=== PATIENT | female | born 1970 | race Hispanic/Latino ===

== ENCOUNTER 2021-03-19 09:58 | Observation (INO) | payer SELFPAY ==
--- NOTE | 2021-03-19 10:31 | Event Note ---
ED Screening Note Date of service: 03/19/21 Time: 10:29 ED Screening Note: Patient states that she was sent to the ER by her primary care doctor for low hemoglobin. Patient had lab work done Wednesday, and it was found that she had a hemoglobin of 5.2. Patient states that for the past 2 months she has been having syncopal episodes and numbness in her arms and dizziness. She states that she has passed out 4 times in the past 2 months. She states that she has been going to her primary care doctor about her symptoms but he finally just did lab work Wednesday and she was notified about abnormal labs and was informed to come to the ER. Patient denies any underlying past medical history. She denies any black stools or hematochezia. She is postmenopausal. This initial assessment/diagnostic orders/clinical plan/treatment(s) is/are subject to change based on patients health status, clinical progression and re- assessment by fellow clinical providers in the ED. Further treatment and workup at subsequent clinical providers discretion. Patient/guardian urged not to elope from the ED as their condition may be serious if not clinically assessed and managed. Initial orders include: CBC, CMP, type and screen
[2021-03-19 11:53] LABS: Basophils # (Auto) 0.1 K/mm3 (0.0-0.1); Basophils % (Auto) 1.3 % (0.0-1.8); Eosinophils # (Auto) 0.4 K/mm3 (0.0-0.4); Eosinophils % (Auto) 4.6 % (0.0-4.3); Lymphocytes # (Auto) 1.6 K/mm3 (1.2-5.4); Lymphocytes % (Auto) 20.5 % (13.4-35.0); Mean Corpuscular HGB Conc 30 % (30-34); Monocytes # (Auto) 0.6 K/mm3 (0.0-0.8); Monocytes % (Auto) 7.2 % (0.0-7.3); Platelet Count 772 K/mm3 (140-440); Red Blood Count 3.11 M/mm3 (3.65-5.03); Red Cell Distribution Width 19.3 % (13.2-15.2)
[2021-03-19 12:09] LABS: Albumin 4.2 g/dL (3.9-5); Calcium 9.5 mg/dL (8.4-10.2)
[2021-03-19 12:41] LABS: Hematocrit 17.6 % (30.3-42.9); Mean Corpuscular Volume 57 fl (79-97)
--- NOTE | 2021-03-19 13:08 | Emergency Department Report ---
ED General Adult HPI - General Chief complaint: Recheck/Abnormal Lab/Rx Stated complaint: LOW IRON SENT BY DOCTOR Time Seen by Provider: 03/19/21 12:41 Source: patient Mode of arrival: Ambulatory Limitations: No Limitations - History of Present Illness Initial comments: Patient is 50 years old female with history of hypertension. Patient presented to the ER stating that she was called by her primary care physician asked him to come to the emergency room because they found that she has a hemoglobin of 5.2. Patient stated that she saw her primary care physician 3 days ago for dizziness and generalized fatigue and he ordered blood. She denied any hemoptysis, hematemesis, melena or hematochezia. Patient also denied any hematuria or abnormal vaginal bleeding. Severity scale (0 -10): 0 - Related Data Previous Rx's Medication Instructions Recorded Last Taken Type Acetaminophen/Codeine 1 tab PO Q6H PRN #14 tab 07/17/14 Unknown Rx [Acetaminophen-Codeine #3 TAB] Clindamycin [Clindamycin CAP] 450 mg PO TID #30 capsule 07/17/14 Unknown Rx Naproxen [Naprosyn TAB] 500 mg PO BID #30 tablet 07/17/14 Unknown Rx Docusate Sodium [Colace] 100 mg PO BID PRN #60 capsule 03/19/21 Unknown Rx Ferrous Sulfate [Ferrous Sulfate 324 mg PO BID #60 tablet. 03/19/21 Unknown Rx 324 MG] Allergies Allergy/AdvReac Type Severity Reaction Status Date / Time Penicillins AdvReac Rash Verified 07/17/14 16:02 ED Review of Systems ROS: Stated complaint: LOW IRON SENT BY DOCTOR Other details as noted in HPI Comment: All other systems reviewed and negative Constitutional: denies: chills, fever Respiratory: denies: cough, shortness of breath, SOB with exertion Cardiovascular: denies: chest pain, palpitations Gastrointestinal: denies: abdominal pain, nausea, vomiting Musculoskeletal: denies: back pain Neurological: denies: headache, weakness, numbness, paresthesias, confusion ED Past Medical Hx - Past Medical History Previous Medical History?: No Additional medical history: denies - Surgical History Past Surgical History?: Yes Additional Surgical History: x 2, gallbladder removed, tonsilectomy - Social History Smoking Status: Never Smoker Substance Use Type: None - Medications Home Medications: Home Medications Medication Instructions Recorded Confirmed Last Taken Type Acetaminophen/Codeine 1 tab PO Q6H PRN #14 tab 07/17/14 Unknown Rx [Acetaminophen-Codeine #3 TAB] Clindamycin [Clindamycin CAP] 450 mg PO TID #30 capsule 07/17/14 Unknown Rx Naproxen [Naprosyn TAB] 500 mg PO BID #30 tablet 07/17/14 Unknown Rx Docusate Sodium [Colace] 100 mg PO BID PRN #60 capsule 03/19/21 Unknown Rx Ferrous Sulfate [Ferrous Sulfate 324 mg PO BID #60 tablet. 03/19/21 Unknown Rx 324 MG] ED Physical Exam - General Limitations: No Limitations General appearance: alert, in no apparent distress - Eye Eye exam: Present: other (Pale conjunctiva) - ENT ENT exam: Present: normal exam, normal orophraynx, mucous membranes moist - Neck Neck exam: Present: normal inspection, full ROM. Absent: tenderness, men ingismus - Respiratory Respiratory exam: Present: normal lung sounds bilaterally - Cardiovascular Cardiovascular Exam: Present: regular rate, normal rhythm, normal heart sounds - GI/Abdominal GI/Abdominal exam: Present: soft, normal bowel sounds. Absent: distended, tenderness, guarding, rebound, rigid, organomegaly, mass, bruit, pulsatile mass, hernia - Extremities Exam Extremities exam: Present: normal inspection, full ROM, normal capillary refill. Absent: tenderness - Back Exam Back exam: Present: normal inspection, full ROM. Absent: CVA tenderness (R), CVA tenderness (L) - Neurological Exam Neurological exam: Present: alert, oriented X3, CN II-XII intact, normal gait, reflexes normal. Absent: motor sensory deficit - Psychiatric Psychiatric exam: Present: normal mood - Skin Skin exam: Present: warm, intact, normal color ED Course Vital Signs 03/19/21 03/19/21 03/19/21 10:24 13:17 13:30 Temperature 98.8 F Pulse Rate 78 73 Respiratory 18 18 23 Rate Blood Pressure 99/40 Blood Pressure 113/65 [Right] O2 Sat by Pulse 100 96 Oximetry 03/19/21 03/19/21 03/19/21 14:00 14:30 14:46 Temperature Pulse Rate 71 86 73 Respiratory 20 15 18 Rate Blood Pressure 102/59 99/40 99/40 Blood Pressure [Right] O2 Sat by Pulse 97 100 100 Oximetry 09/08/0803/19/21 03/19/21 15:00 15:16 15:30 Temperature Pulse Rate 74 80 82 Respiratory 21 18 18 Rate Blood Pressure 93/48 93/48 93/48 Blood Pressure [Right] O2 Sat by Pulse 99 99 100 Oximetry 03/19/21 03/19/21 03/19/21 17:03 17:04 17:11 Temperature 98.3 F 98.3 F Pulse Rate 71 Respiratory 21 Rate Blood Pressure 88/50 88/50 Blood Pressure [Right] O2 Sat by Pulse 99 Oximetry 03/19/21 03/19/21 03/19/21 17:16 17:19 17:30 Temperature 98.0 F Pulse Rate 71 76 85 Respiratory 23 18 18 Rate Blood Pressure 93/54 98/51 112/58 Blood Pressure [Right] O2 Sat by Pulse 100 100 98 Oximetry 03/19/21 03/19/21 03/19/21 17:46 17:49 18:00 Temperature 98 F Pulse Rate 77 72 77 Respiratory 24 16 22 Rate Blood Pressure 116/54 103/56 104/56 Blood Pressure [Right] O2 Sat by Pulse 100 100 100 Oximetry ED Medical Decision Making - Lab Data Result diagrams: 03/19/21 18:49 03/19/21 10:40 - Medical Decision Making Patient is 50 years old female with history of hypertension. Patient presented to the ER stating that she was called by her primary care physician asked him to come to the emergency room because they found that she has a hemoglobin of 5.2. Patient stated that she saw her primary care physician 3 days ago for dizziness and generalized fatigue and he ordered blood. She denied any hemoptysis, hematemesis, melena or hematochezia. Patient also denied any hematuria or abnormal vaginal bleeding. Patient received 1 units of PRBC and her hemoglobin went up from 5.2-5.5. I discussed the patient with Dr. Marina for admission. Dr. Marina stated that he will come down and speak to the patient. Critical Care Time: Yes Critical care time in (mins) excluding proc time.: 30 Critical care attestation.: If time is entered above; I have spent that time in minutes in the direct care of this critically ill patient, excluding procedure time. ED Disposition Clinical Impression: Symptomatic anemia, Iron deficiency anemia Disposition: ADMITTED INPATIENT Is pt being admited?: Yes Condition: Stable Instructions: Preventing Iron Deficiency Anemia, Adult, Blood Transfusion, Adult, Care After, [id number] Prescriptions: Docusate Sodium [Colace] 100 mg PO BID PRN #60 capsule PRN Reason: Constipation Ferrous Sulfate [Ferrous Sulfate 324 MG] 324 mg PO BID #60 tablet. Referrals: PRIMARY CARE, [Primary Care Provider] - 3-5 Days
[2021-03-19] MEDS ORDERED: SODIUM CHLORIDE 0.9% 500 ML 500 ML IV ONE (13:44)
[2021-03-19 13:45] LABS: Hemoglobin 5.2 gm/dl (10.1-14.3)
[2021-03-19] MEDS ORDERED: SODIUM CHLORIDE 0.9% 500 ML 500 ML ONE (16:43)
[2021-03-19 19:25] LABS: Hemoglobin 5.5 gm/dl (10.1-14.3)
[2021-03-19] MEDS ORDERED: SODIUM CHLORIDE 0.9% 1000 ML 1,000 ML IV ONE (19:32)
[2021-03-19] MEDS ORDERED: oxyCODONE /ACETAMINOPHEN 5-325MG TAB PO PRN (20:07)
[2021-03-19] MEDS ORDERED: ACETAMINOPHEN 325 MG TAB PO PRN (20:07)
[2021-03-19] MEDS ORDERED: ALBUTEROL 2.5 MG/3 ML NEBU IH PRN (20:07)
[2021-03-19] MEDS ORDERED: HYDROmorphone 1 MG/1 ML INJ IV PRN (20:07)
[2021-03-19] MEDS ORDERED: ONDANSETRON 4 MG/2 ML INJ IV PRN (20:07)
--- NOTE | 2021-03-19 20:07 | History and Physical Report ---
History of Present Illness Chief complaint: I feel weak History of present illness: 50 YO Female with Obesity, Anemia presents to ED for evaluation. Pt reports "I feel weak". Pt states that she has experienced generalized weakness over the past 1 month. Pt was seen and evaluated by her PCP 3 days ago for the aforement ioned symptoms and was found to have a hemoglobin of 5.2. Pt was instructed to seek further care. Pt transported to [facility] via private vehicle for further care and evaluation. Pt seen and evaluated in ED. All labs and imaging studies reviewed. Pt found to have symptomatic anemia, as well as TAWANDA. Pt placed in observation status and admitted to medical floor and transfused with PRBC. Past History Past Surgical History: cholecystectomy, , tonsillectomy Social history: . denies: smoking, alcohol abuse, prescription drug abuse Family history: hypertension Medications and Allergies Allergies Allergy/AdvReac Type Severity Reaction Status Date / Time Penicillins AdvReac Rash Verified 07/17/14 16:02 Home Medications Medication Instructions Recorded Confirmed Last Taken Type Acetaminophen/Codeine 1 tab PO Q6H PRN #14 tab 07/17/14 Unknown Rx [Acetaminophen-Codeine #3 TAB] Clindamycin [Clindamycin CAP] 450 mg PO TID #30 capsule 07/17/14 Unknown Rx Naproxen [Naprosyn TAB] 500 mg PO BID #30 tablet 07/17/14 Unknown Rx Docusate Sodium [Colace] 100 mg PO BID PRN #60 capsule 03/19/21 Unknown Rx Ferrous Sulfate [Ferrous Sulfate 324 mg PO BID #60 tablet. 03/19/21 Unknown Rx 324 MG] Active Meds: Active Medications Sodium Chloride (Nacl 0.9% 1000 Ml) 1,000 mls @ 999 mls/hr IV BOLUS ONE Stop: 03/19/21 20:32 Review of Systems Constitutional: weakness, no weight loss, no weight gain, no fever Ears, nose, mouth and throat: no ear pain, no ear discharge, no tinnitis, no decreased hearing, no nose pain Breasts: no change in shape, no swelling, no mass Cardiovascular: lightheadedness, no chest pain, no orthopnea, no palpitations, no rapid/irregular heart beat, no edema Respiratory: no cough, no cough with sputum, no excessive sputum, no hemoptysis Gastrointestinal: no abdominal pain, no nausea, no vomiting, no diarrhea Genitourinary Female: no pelvic pain, no flank pain, no dysuria, no urinary frequency Rectal: no pain, no incontinence, no bleeding Musculoskeletal: no neck stiffness, no neck pain, no shooting arm pain, no arm numbness/tingling Integumentary: no rash, no pruritis, no sores, no wounds, no jaundice Neurological: no transient paralysis, no paralysis Psychiatric: no anxiety, no change in sleep habits, no insomnia, no change in libido, no suicidal ideation Endocrine: no cold intolerance, no polyphagia, no excessive thirst, no polyuria Hematologic/Lymphatic: no easy bruising, no easy bleeding, no lymphedema Allergic/Immunologic: no allergic rhinitis, no wheezing, no persistent infections Exam - Constitutional Vitals: Temp Pulse Resp BP Pulse Ox 98 F 77 22 104/56 100 03/19/21 17:49 03/19/21 18:00 03/19/21 18:00 03/19/21 18:00 03/19/21 18:00 General appearance: Present: mild distress, obese - EENT Eyes: Present: PERRL (conjunctival pallor) ENT: hearing intact, clear oral mucosa - Neck Neck: Present: supple, normal ROM - Respiratory Respiratory effort: normal Respiratory: bilateral: CTA - Cardiovascular Heart Sounds: Present: S1 & S2. Absent: rub, click - Extremities Extremities: pulses symmetrical, No edema Peripheral Pulses: within normal limits - Abdominal General gastrointestinal: Present: soft, non-tender, non-distended, normal bowel sounds Female genitourinary: Present: normal - Integumentary Integumentary: Present: clear, warm, dry - Musculoskeletal Musculoskeletal: generalized weakness - Psychiatric Psychiatric: appropriate mood/affect, intact judgment & insight - Neurologic Neurologic: CNII-XII intact, moves all extremities Results - Labs CBC & Chem 7: 03/19/21 18:49 03/19/21 10:40 Labs: Abnormal lab results 03/19/21 03/19/21 03/19/21 Range/Units 10:40 10:40 10:40 RBC 3.11 L (3.65-5.03) M/mm3 Hgb 5.2 L* (10.1-14.3) gm/dl Hct 17.6 L* (30.3-42.9) % MCV 57 L (79-97) fl MCH 17 L (28-32) pg RDW 19.3 H (13.2-15.2) % Plt Count 772 H (140-440) K/mm3 Eos % (Auto) 4.6 H (0.0-4.3) % BUN 29 H (7-17) mg/dL Creatinine 1.8 H (0.6-1.2) mg/dL Glucose 101 H (65-100) mg/dL ALT 6 L (7-56) units/L Crossmatch See Detail 03/19/21 Range/Units 18:49 RBC (3.65-5.03) M/mm3 Hgb 5.5 L* (10.1-14.3) gm/dl Hct 18.0 L* (30.3-42.9) % MCV (79-97) fl MCH (28-32) pg RDW (13.2-15.2) % Plt Count (140-440) K/mm3 Eos % (Auto) (0.0-4.3) % BUN (7-17) mg/dL Creatinine (0.6-1.2) mg/dL Glucose (65-100) mg/dL ALT (7-56) units/L Crossmatch Assessment and Plan - Patient Problems (1) Symptomatic anemia Current Visit: Yes Status: Acute Plan to address problem: CBC, PRBC transfusion, repeat cbc in am. (2) TAWANDA (acute kidney injury) Current Visit: Yes Status: Acute Plan to address problem: IVF resuscitation therapy, bmp, repeat bmp in am. (3) DVT prophylaxis Current Visit: Yes Status: Acute Plan to address problem: SCD to BLE while in bed.
[2021-03-19] MEDS ORDERED: SODIUM CHLORIDE 0.9% 1000 ML 2,000 ML IV ONE (20:11)
[2021-03-19] MEDS: FERROUS SULFATE 325 MG TAB PO SCH (22:59)
[2021-03-20] MEDS: SODIUM CHLORIDE 0.9% 1000 ML 1,000 ML IV SCH ×2 (01:53→08:37)
[2021-03-20 06:12] LABS: Basophils # (Auto) 0.1 K/mm3 (0.0-0.1); Basophils % (Auto) 0.8 % (0.0-1.8); Eosinophils # (Auto) 0.3 K/mm3 (0.0-0.4); Eosinophils % (Auto) 4.1 % (0.0-4.3); Hematocrit 20.2 % (30.3-42.9); Hemoglobin 6.2 gm/dl (10.1-14.3); Lymphocytes % (Auto) 27.4 % (13.4-35.0); Mean Corpuscular HGB Conc 31 % (30-34); Monocytes # (Auto) 0.5 K/mm3 (0.0-0.8); Monocytes % (Auto) 6.8 % (0.0-7.3); Platelet Count 595 K/mm3 (140-440); Red Blood Count 3.26 M/mm3 (3.65-5.03)
[2021-03-20 06:15] LABS: Mean Corpuscular Volume 62 fl (79-97); Red Cell Distribution Width 22.9 % (13.2-15.2)
[2021-03-20] MEDS: FERROUS SULFATE 325 MG TAB PO SCH (08:37)
--- NOTE | 2021-03-20 10:23 | Electrocardiograph Report ---
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
[2021-03-20 12:54] VITALS: BP 92/47
== END 2021-03-20 18:50 | disposition home or self-care (01) ==
LOC: ED 09:58 → 4A 20:08
PROVIDERS: ADMIT Internal Medicine; ATTEND Internal Medicine
DX: D50.9 Iron deficiency anemia, unspecified (principal); N17.9 Acute kidney failure, unspecified; Z90.49 Acquired absence of other specified parts of digestive tract; Z98.891 History of uterine scar from previous surgery
CPT/HCPCS: 36415; 36430; 80053; 85014; 85018; 85025; 86850; 86900; 86901; 86920; 93005; 96360; 96361; 99291; G0378; J7030; J7040; P9016

== ENCOUNTER 2022-01-23 12:23 | Emergency (ER) | payer SELFPAY ==
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
[2022-01-23] MEDS ORDERED: IBUPROFEN 600 MG TAB PO ONE (20:53)
[2022-01-23] MEDS ORDERED: ACETAMINOPHEN 500 MG TAB PO ONE (20:53)
--- NOTE | 2022-01-23 21:14 | XRay Report ---
Lumbar spine 2 views INDICATION: Abdominal pain FINDINGS: Scoliotic curvature the spine. Minimal anterolisthesis of L4-L5. Facet changes throughout t he lower lumbar spine. No compression fracture. Visualized sacrum appears normal. Signer Name: Arnie Gamino MD Signed: 01/23/2022 9:09 PM Workstation Name: [id number]
[2022-01-23 21:21] VITALS: BP 144/93
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
== END 2022-01-23 22:36 | disposition home or self-care (01) ==
LOC: ED 12:23
DX: S29.012A Strain of muscle and tendon of back wall of thorax, initial encounter (principal); M62.830 Muscle spasm of back; I10 Essential (primary) hypertension; F41.9 Anxiety disorder, unspecified; Z88.0 Allergy status to penicillin; Z79.899 Other long term (current) drug therapy; V89.2XXA Person injured in unspecified motor-vehicle accident, traffic, initial encounter; Y93.89 Activity, other specified; Y92.89 Other specified places as the place of occurrence of the external cause; Y99.8 Other external cause status
CPT/HCPCS: 72100; 99283